=== PATIENT | male | born 1980 ===

== ENCOUNTER 2020-12-21 18:01 | Observation (INO) | payer MEDICAID, SELFPAY ==
[2020-12-21] MEDS ORDERED: Morphine 2 MG/ML SYRINGE IVPUSH ONE (18:25)
[2020-12-21] MEDS ORDERED: Sodium Chloride 0.9% 10 ML Syringe FLUSH PRN (18:25)
[2020-12-21] MEDS: Sodium Chloride 0.9% 10 ML Syringe FLUSH PRN ×3 (18:34→23:14)
--- NOTE | 2020-12-21 18:34 | EDM.PDOC ---
ED HPI GENERAL MEDICAL PROBLEM - General Chief Complaint: General Stated Complaint: L FOOT PAIN Time Seen by Provider: 12/21/20 18:24 Source of Information: Reports: Patient, EMS - History of Present Illness INITIAL COMMENTS - FREE TEXT/NARRATIVE: Vince is a 40 y/o male who is brought to the ER by EMS with left foot pain. He reports that his sx started yesterday and he is in pain. Also has had a fever since yesterday. He was supposed to follow up at the [facility] here in [place], but he reports that he has been out of town working. Also has pain his left knee and reports that he cannot take NSAIDS due to Chronic Renal Failure and he is close to needing to go on dialysis. He reports his last flare with about a month ago when he was in [place], [place] and he was placed in steroids. 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: Acetaminophen Left Foot Pain Score (Numeric/FACES): 10 - Related Data Allergies Allergy/AdvReac Type Severity Reaction Status Date / Time No Known Allergies Allergy Verified 12/21/20 18:35 Home Meds: Home Meds Labetalol HCl [Labetalol] 200 mg PO TID 10/24/14 [History] amLODIPine [Norvasc] 10 mg PO DAILY 10/24/14 [History] hydrALAZINE [Apresoline] 50 mg PO TID 12/21/20 [History] Past Medical History Other Genitourinary History: "kidney problems" ED ROS GENERAL - Review of Systems Review Of Systems: See Below Constitutional: Reports: Fever HEENT: Reports: No Symptoms Respiratory: Reports: No Symptoms Cardiovascular: Reports: No Symptoms Endocrine: Reports: No Symptoms GI/Abdominal: Reports: No Symptoms : Reports: No Symptoms Musculoskeletal: Reports: Foot Pain (left), Joint Pain (left knee) Skin: Reports: No Symptoms Neurological: Reports: No Symptoms Psychiatric: Reports: No Symptoms Hematologic/Lymphatic: Reports: No Symptoms Immunologic: Reports: No Symptoms ED EXAM, GENERAL - Physical Exam Exam: See Below General Appearance: Alert, WD/WN, No Apparent Distress Ears: Hearing Grossly Normal Nose: Normal Inspection Throat/Mouth: Normal Lips, Normal Oropharynx, Normal Voice Head: Atraumatic, Normocephalic Neck: Supple Respiratory/Chest: No Respiratory Distress, Lungs Clear, Chest Non-Tender Cardiovascular: Normal Peripheral Pulses, Regular Rate, Rhythm GI/Abdominal: Normal Bowel Sounds, Soft, Non-Tender (Male) Exam: Deferred Rectal (Males) Exam: Deferred Extremities: Normal Inspection, Other (Left foot is tender to palpation on the anterior aspect of the foot and left great toe, ROM not tested due to pain, no deformity noted.) Neurological: Alert, Oriented, CN II-XII Intact Psychiatric: Normal Affect, Normal Mood Skin Exam: Warm, Dry, Intact, Normal Color Course - Vital Signs Text/Narrative:: 1823 The patient was seen by the [facility]IC[facility]. Labs ordered. He was given Morphine 2mg IV P for pain. Will await labs prior to further interventions. Note BP elevated, but suspect pain related. 1914 Pain persists, Fentanyl 100mcg IVP given. Note WBC=13.1, Neuts=84.1%; Lactic Acid=1.0, CRP=24.3, Uric Acid=14.4; CMP BUN=36, [employer] Counselor=4.95, GFR=13. BP remains high, will assess and see if improves with pain control. 2009 Pain persisting and again getting worse. Rates pain 11/22. Dilaudid 2mg IVP given. 2129 BP still elevated and pt can hardly move due to pain. Labetalol 20mg IVP given. [place] and noted last narcotic Rx in [place] 05/2020. Current MME/day=0.00; OD Xqdi=943. 2229 Pain persists and actually feeling worse. Repeat Dilaudid 1mg IVP. BP rising again with SBPs >=200mmHg and DBPs 115-120smmHg, will given Hydralyzine 20mg IVP. Discussed attempting to get patient comfortable and sending home with steroids and pain meds and have him follow up with Nephrology vs admitting himfor acute pain management and attempting to get him transferred to [facility] for further care. 2244 Attempted to call and transfer pt, but no beds available. Will plan to admit here to Observation and treat pain, monitor BPs, and let steroids kick in for gout attack. Hopefully can get patient to establish care with PCP here in [facility] and then get into Nephrology as an outpatient. Last Recorded V/S: Last Vital Signs Temp 37.9 C 12/21/20 19:19 Pulse 106 H 12/21/20 19:19 Resp 16 09/08/21 19:19 BP 211/129 H 12/21/20 19:19 Pulse Ox 98 12/21/20 19:19 - Orders/Labs/Meds Orders: Active Orders 24 hr Category Date Time Status Patient Status [ADT] Routine ADT 12/21/20 22:52 Active CULTURE BLOOD [BC] Stat Lab 12/21/20 18:13 Received CULTURE BLOOD [BC] Stat Lab 12/21/20 18:18 Received Sodium Chloride 0.9% [Saline Flush] Med 12/21/20 18:25 Active 10 ml FLUSH ASDIRECTED PRN Blood Culture x2 Reflex Set [OM.PC] Stat Oth 12/21/20 18:25 Ordered Blood Culture x2 Reflex Set [OM.PC] Stat Oth 12/21/20 18:25 Ordered Saline Lock Insert [OM.PC] Routine Oth 12/21/20 18:26 Ordered Saline Lock Insert [OM.PC] Stat Oth 12/21/20 18:25 Ordered Medication Orders Acetaminophen (Acetaminophen 325 Mg Tab) 650 mg PO Q4H PRN PRN Reason: Pain (Mild 1-3)/fever Hydromorphone HCl (Hydromorphone 1 Mg/Ml Syringe) 1 mg IVPUSH Q2H PRN PRN Reason: Pain (severe 7-10) Methylprednisolone Sodium Succinate (Methylprednisolone Sodium Succinate 125 Mg/2 Ml Sdv) 125 mg IVPUSH Q6H ANANYA Non-Formulary Medication (Amlodipine [Norvasc]) 10 mg PO DAILY ANANYA Non-Formulary Medication (Hydralazine [Apresoline]) 50 mg PO TID ANANYA Non-Formulary Medication (Labetalol Hcl [Labetalol]) 200 mg PO TID ANANYA Oxycodone HCl (Oxycodone 5 Mg Tab) 5 mg PO Q4H PRN PRN Reason: Pain (moderate 4-6) Sodium Chloride (Sodium Chloride 0.9% 10 Ml Syringe) 10 ml FLUSH ASDIRECTED PRN PRN Reason: Keep Vein Open Labs: Laboratory Tests 12/21/20 12/21/20 12/21/20 Range/Units 18:13 18:13 18:13 WBC 13.1 H (4.0-10.2) K/uL RBC 4.47 (4.33-5.41) M/uL Hgb 11.9 L (13.1-16.8) g/dL Hct 34.7 L (39.0-49.0) % MCV 77.6 L (84.0-98.0) fL MCH 26.6 L (28.2-33.3) pg MCHC 34.3 (31.7-36.0) g/dL RDW 16.6 H (11.2-14.1) % Plt Count 419 H (150-350) K/uL Neut % (Auto) 84.1 H (45.0-80.0) % Lymph % (Auto) 6.6 L (10.0-50.0) % [place] % (Auto) 8.0 (2.0-14.0) % Eos % (Auto) 1.1 (0.0-5.0) % Baso % (Auto) 0.2 (0.0-2.0) % Neut # (Auto) 11.04 H (1.40-7.00) K/uL Lymph # (Auto) 0.86 (0.50-3.50) K/uL [place] # (Auto) 1.05 H (0.00-1.00) K/uL Eos # (Auto) 0.14 (0.00-0.50) K/uL Baso # (Auto) 0.03 (0.00-0.20) K/uL Sodium 140 (136-145) mmol/L Potassium 3.7 (3.5-5.1) mmol/L Chloride 105 (98-107) mmol/L Carbon Dioxide 21.6 (21.0-32.0) mmol/L Anion Gap 13.4 (7-15) meq/L BUN 36 H (7-18) mg/dL Creatinine 4.95 H* (0.51-1.17) mg/dL Est Cr Clr Drug Dosing 17.26 mL/min Estimated GFR (MDRD) 13 mL/min Glucose 96 (70-99) mg/dL Lactic Acid 1.0 (0.4-2.0) mmol/L Uric Acid 14.4 H (2.6-7.2) mg/dL Calcium 9.2 (8.5-10.1) mg/dL Total Bilirubin 0.4 (0.2-1.0) mg/dL AST 10 L (15-37) U/L ALT 20 (12-78) U/L Alkaline Phosphatase 94 (46-116) IU/L C-Reactive Protein 24.3 H (<=0.9) mg/dL Total Protein 7.5 (6.4-8.2) g/dL Albumin 2.9 L (3.4-5.0) g/dL Meds: Medications Generic Name Dose Route Start Last Admin Trade Name Farhat PRN Reason Stop Dose Admin Acetaminophen 650 mg 12/21/20 23:22 Acetaminophen 325 Mg Tab PO Q4H PRN Pain (Mild 1-3)/fever Hydromorphone HCl 1 mg 12/21/20 23:22 Hydromorphone 1 Mg/Ml Syringe IVPUSH Q2H PRN Pain (severe 7-10) Methylprednisolone Sodium Succinate 125 mg 12/21/20 23:45 Methylprednisolone Sodium Succinate 125 Mg/2 Ml Sdv IVPUSH Q6H ANANYA Non-Formulary Medication 10 mg 12/22/20 08:00 Amlodipine [Norvasc] PO DAILY ANANYA Non-Formulary Medication 50 mg 12/22/20 08:00 Hydralazine [Apresoline] PO TID ANANYA Non-Formulary Medication 200 mg 12/22/20 08:00 Labetalol Hcl [Labetalol] PO TID ANANYA Oxycodone HCl 5 mg 12/21/20 23:22 Oxycodone 5 Mg Tab PO Q4H PRN Pain (moderate 4-6) Sodium Chloride 10 ml 12/21/20 18:25 Sodium Chloride 0.9% 10 Ml Syringe FLUSH ASDIRECTED PRN Keep Vein Open Discontinued Medications Generic Name Dose Route Start Last Admin Trade Name Farhat PRN Reason Stop Dose Admin Fentanyl 100 mcg 12/21/20 19:18 12/21/20 19:21 Fentanyl 100 Mcg/2 Ml Sdv IVPUSH 12/21/20 19:19 100 mcg ONETIME ONE Administration Hydralazine HCl 10 mg 12/21/20 22:39 Hydralazine 20 Mg/Ml Sdv IVPUSH 12/21/20 22:40 ONETIME ONE Hydralazine HCl 20 mg 12/21/20 22:41 12/21/20 23:12 Hydralazine 20 Mg/Ml Sdv IVPUSH 12/21/20 22:42 20 mg ONETIME ONE Administration Hydromorphone HCl 1 mg 12/21/20 20:09 12/21/20 21:33 Hydromorphone 1 Mg/Ml Syringe IVPUSH 12/21/20 20:10 1 mg ONETIME ONE Administration Hydromorphone HCl 1 mg 12/21/20 22:39 12/21/20 23:12 Hydromorphone 1 Mg/Ml Syringe IVPUSH 12/21/20 22:40 1 mg ONETIME ONE Administration Labetalol HCl 20 mg 12/21/20 21:39 12/21/20 21:41 Labetalol 20 Mg/4 Ml Syringe IVPUSH 12/21/20 21:40 20 mg ONETIME ONE Administration Protocol Methylprednisolone Sodium Succinate 125 mg 12/21/20 19:55 12/21/20 21:32 Methylprednisolone Sodium Succinate 125 Mg/2 Ml Sdv IVPUSH 12/21/20 19:56 125 mg ONETIME ONE Administration Methylprednisolone Sodium Succinate 125 mg 12/21/20 20:09 12/21/20 21:36 Methylprednisolone Sodium Succinate 125 Mg/2 Ml Sdv IVPUSH 12/21/20 20:10 Not Given ONETIME ONE Morphine Sulfate 2 mg 12/21/20 18:25 12/21/20 18:29 Morphine 2 Mg/Ml Syringe IVPUSH 12/21/20 18:26 2 mg ONETIME ONE Administration Sodium Chloride 10 ml 12/21/20 18:26 12/21/20 23:14 Sodium Chloride 0.9% 10 Ml Syringe FLUSH 10 ml ASDIRECTED PRN Administration Keep Vein Open Departure - Departure Time of Disposition: 22:52 Disposition: DC/Tfer W/I Hosp To Swing 61 Condition: Good Clinical Impression: Acute pain, Hypertension with impaired renal function Gout Qualifiers: Gout site: foot Gout etiology: unspecified cause Chronicity: acute Laterality: left Qualified Code(s): M10.9 - Gout, unspecified CRF (chronic renal failure) Qualifiers: Chronic kidney disease stage: stage 4 (severe) Qualified Code(s): N18.4 - Chronic kidney disease, stage 4 (severe) - Discharge Information Sepsis Event Note (ED) - Evaluation Sepsis Screening Result: Possible Sepsis Risk - Focused Exam Vital Signs: Vital Signs Temp Pulse Resp BP BP Pulse Ox 12/21/20 19:19 37.9 C 106 H 16 211/129 H 98 12/21/20 18:42 106 H 18 206/122 H 98 12/21/20 18:02 38.1 C 104 H 20 216/130 H 100 - Problem List & Annotations (1) Acute pain SNOMED Code(s): 548344454 Code(s): R52 - PAIN, UNSPECIFIED Status: Acute Current Visit: Yes Annotation/Comment:: Will give Diluadid tonight to control acute pain related to gout exacerbation. Will trasnsition to oral meds, but hoping pain will improve with rest and steroids. (2) Gout SNOMED Code(s): 25505951 Code(s): M10.9 - GOUT, UNSPECIFIED Status: Acute Current Visit: Yes Annotation/Comment:: Uric acid=14.4, CRP=24.3 along with clinical presentation, appears to be exacerbation of gout. Most recent attack 1 rogelio ago. Was on course of steroids. Renal failure complicates what he can receive for meds. He has not established care with a PCP since relocating to the [facility]. Qualifiers: Gout site: foot Gout etiology: unspecified cause Chronicity: acute Laterality: left Qualified Code(s): M10.9 - Gout, unspecified (3) Hypertension with impaired renal function SNOMED Code(s): 05174165, 635682015 Code(s): I12.9 - HYPERTENSIVE CHRONIC KIDNEY DISEASE W STG 1-4/UNSP CHR KDNY Status: Acute Current Visit: Yes Annotation/Comment:: -On Hydralyzine, Amlodipine, and & Labetolol oral meds for CHTN of 20 years. GFR=13, BUN=36, [employer] Counselor=4.95, no past records available for review of labs. Patient been advised he needs dialysis, will attempt to get Nephrology consult set up tomorrow. Will give extra antihypertensives for increased BP tonight, but suspect it is pain related from the gout attack. (4) CRF (chronic renal failure) SNOMED Code(s): 35243977 Code(s): N18.9 - CHRONIC KIDNEY DISEASE, UNSPECIFIED Status: Acute Current Visit: Yes Annotation/Comment:: GFR=13 as noted above. Will need urgent Nephrology Referral. Potassium normal tonight. Will check US tomorrw in AM for protein. Qualifiers: Chronic kidney disease stage: stage 4 (severe) Qualified Code(s): N18.4 - Chronic kidney disease, stage 4 (severe) - Problem List Review Problem List Initiated/Reviewed/Updated: Yes - My Orders Last 24 Hours: My Active Orders 12/21/20 18:13 CULTURE BLOOD [BC] Stat 12/21/20 18:18 CULTURE BLOOD [BC] Stat 12/21/20 18:25 Sodium Chloride 0.9% [Saline Flush] 10 ml FLUSH ASDIRECTED PRN Blood Culture x2 Reflex Set [OM.PC] Stat Blood Culture x2 Reflex Set [OM.PC] Stat Saline Lock Insert [OM.PC] Stat 12/21/20 18:26 Saline Lock Insert [OM.PC] Routine 12/21/20 22:52 Patient Status [ADT] Routine - Assessment/Plan Admission H&P: Please use this note as an admission H&P Last 24 Hours: My Active Orders 12/21/20 18:13 CULTURE BLOOD [BC] Stat 12/21/20 18:18 CULTURE BLOOD [BC] Stat 12/21/20 18:25 Sodium Chloride 0.9% [Saline Flush] 10 ml FLUSH ASDIRECTED PRN Blood Culture x2 Reflex Set [OM.PC] Stat Blood Culture x2 Reflex Set [OM.PC] Stat Saline Lock Insert [OM.PC] Stat 12/21/20 18:26 Saline Lock Insert [OM.PC] Routine 12/21/20 22:52 Patient Status [ADT] Routine Plan: See Above
[2020-12-21 18:58] LABS: ANION GAP 13.4 meq/L (7-15)
[2020-12-21] MEDS ORDERED: fentaNYL 100 MCG/2 ML SDV IVPUSH ONE (19:18)
[2020-12-21] MEDS ORDERED: methylPREDNISolone Sodium Succinate 125 MG/2 ML SDV IVPUSH ONE ×2 (19:55→20:09)
[2020-12-21] MEDS ORDERED: HYDROmorphone 1 MG/ML Syringe IVPUSH ONE ×2 (20:09→22:39)
[2020-12-21] MEDS ORDERED: Labetalol 20 MG/4 ML Syringe IVPUSH ONE ×2 (21:07→21:39)
[2020-12-21] MEDS ORDERED: hydrALAZINE 20 MG/ML SDV IVPUSH ONE ×2 (22:39→22:41)
[2020-12-21] MEDS ORDERED: HYDROmorphone 1 MG/ML Syringe IVPUSH PRN (23:22)
[2020-12-22] MEDS: oxyCODONE 5 MG Tab PO PRN ×3 (00:30→09:58)
[2020-12-22] MEDS: Acetaminophen 325 MG Tab PO PRN ×2 (02:19→07:22)
[2020-12-22] MEDS: methylPREDNISolone Sodium Succinate 125 MG/2 ML SDV IVPUSH SCH ×3 (02:20→13:27)
[2020-12-22] MEDS: hydrALAZINE 50 MG Tab PO SCH ×2 (07:21→11:17)
[2020-12-22] MEDS: Labetalol 100 MG Tab PO SCH ×2 (07:21→11:19)
[2020-12-22] MEDS ORDERED: amLODIPine 5 MG Tab PO SCH (08:00)
[2020-12-22 08:44] LABS: ANION GAP 18.5 meq/L (7-15)
[2020-12-22 11:21] VITALS: BP 171/116; PULSE 85
--- NOTE | 2020-12-22 11:47 | PCM.PN ---
- General Info Date of Service: 12/22/20 Admission Dx/Problem (Free Text): 1)Acute Pain 2)Gout Attack 3)Chronic Kidney Disease 4)Chronic Hypertension Subjective Update: Patient reporting pain has improved. He is now is now applying ice the left foot and that also helps. Now taking Oxycodone for pain and that seems to be effective. Required several doses of Dilaudid through the night for the pain. Patient is now willing to see Nephrology and start dialysis, he has previously been resistant. - Review of Systems General: Reports: No Symptoms HEENT: Reports: No Symptoms Pulmonary: Reports: No Symptoms Cardiovascular: Reports: No Symptoms Gastrointestinal: Reports: No Symptoms Genitourinary: Reports: No Symptoms Musculoskeletal: Reports: Foot Pain (left foot) Skin: Reports: No Symptoms Neurological: Reports: No Symptoms Psychiatric: Reports: No Symptoms - Patient Data Vitals - Most Recent: Last Vital Signs Temp 37.0 C 12/22/20 07:33 Pulse 85 12/22/20 11:21 Resp 16 12/22/20 11:21 BP 171/116 H 12/22/20 11:21 Pulse Ox 97 12/22/20 11:21 Weight - Most Recent: 95.2 kg I&O - Last 24 Hours: Intake & Output 12/21/20 12/22/20 12/22/20 22:59 06:59 14:59 Intake Total 1240 Balance 1240 Lab Results Last 24 Hours: Laboratory Results - last 24 hr 12/21/20 12/21/20 12/21/20 Range/Units 18:13 18:13 18:13 WBC 13.1 H (4.0-10.2) K/uL RBC 4.47 (4.33-5.41) M/uL Hgb 11.9 L (13.1-16.8) g/dL Hct 34.7 L (39.0-49.0) % MCV 77.6 L (84.0-98.0) fL MCH 26.6 L (28.2-33.3) pg MCHC 34.3 (31.7-36.0) g/dL RDW 16.6 H (11.2-14.1) % Plt Count 419 H (150-350) K/uL Neut % (Auto) 84.1 H (45.0-80.0) % Lymph % (Auto) 6.6 L (10.0-50.0) % [place] % (Auto) 8.0 (2.0-14.0) % Eos % (Auto) 1.1 (0.0-5.0) % Baso % (Auto) 0.2 (0.0-2.0) % Neut # (Auto) 11.04 H (1.40-7.00) K/uL Lymph # (Auto) 0.86 (0.50-3.50) K/uL [place] # (Auto) 1.05 H (0.00-1.00) K/uL Eos # (Auto) 0.14 (0.00-0.50) K/uL Baso # (Auto) 0.03 (0.00-0.20) K/uL Sodium 140 (136-145) mmol/L Potassium 3.7 (3.5-5.1) mmol/L Chloride 105 (98-107) mmol/L Carbon Dioxide 21.6 (21.0-32.0) mmol/L Anion Gap 13.4 (7-15) meq/L BUN 36 H (7-18) mg/dL Creatinine 4.95 H* (0.51-1.17) mg/dL Est Cr Clr Drug Dosing 17.26 mL/min Estimated GFR (MDRD) 13 mL/min Glucose 96 (70-99) mg/dL Lactic Acid 1.0 (0.4-2.0) mmol/L Uric Acid 14.4 H (2.6-7.2) mg/dL Calcium 9.2 (8.5-10.1) mg/dL Total Bilirubin 0.4 (0.2-1.0) mg/dL AST 10 L (15-37) U/L ALT 20 (12-78) U/L Alkaline Phosphatase 94 (46-116) IU/L C-Reactive Protein 24.3 H (<=0.9) mg/dL Total Protein 7.5 (6.4-8.2) g/dL Albumin 2.9 L (3.4-5.0) g/dL SARS-CoV-2 Ag (Rapid) (NEGATIVE) 12/21/20 12/22/20 12/22/20 Range/Units 23:33 07:11 07:11 WBC 13.9 H (4.0-10.2) K/uL RBC 4.73 (4.33-5.41) M/uL Hgb 12.6 L (13.1-16.8) g/dL Hct 36.3 L (39.0-49.0) % MCV 76.7 L (84.0-98.0) fL MCH 26.6 L (28.2-33.3) pg MCHC 34.7 (31.7-36.0) g/dL RDW 16.7 H (11.2-14.1) % Plt Count 361 H (150-350) K/uL Neut % (Auto) 96.8 H (45.0-80.0) % Lymph % (Auto) 2.1 L (10.0-50.0) % [place] % (Auto) 0.9 L (2.0-14.0) % Eos % (Auto) 0.1 (0.0-5.0) % Baso % (Auto) 0.1 (0.0-2.0) % Neut # (Auto) 13.49 H (1.40-7.00) K/uL Lymph # (Auto) 0.29 L (0.50-3.50) K/uL [place] # (Auto) 0.12 (0.00-1.00) K/uL Eos # (Auto) 0.01 (0.00-0.50) K/uL Baso # (Auto) 0.02 (0.00-0.20) K/uL Sodium 135 L (136-145) mmol/L Potassium 4.4 (3.5-5.1) mmol/L Chloride 100 (98-107) mmol/L Carbon Dioxide 20.9 L (21.0-32.0) mmol/L Anion Gap 18.5 H (7-15) meq/L BUN 40 H (7-18) mg/dL Creatinine 5.46 H* (0.51-1.17) mg/dL Est Cr Clr Drug Dosing 15.64 mL/min Estimated GFR (MDRD) 12 mL/min Glucose 270 H (70-99) mg/dL Lactic Acid (0.4-2.0) mmol/L Uric Acid (2.6-7.2) mg/dL Calcium 9.6 (8.5-10.1) mg/dL Total Bilirubin (0.2-1.0) mg/dL AST (15-37) U/L ALT (12-78) U/L Alkaline Phosphatase (46-116) IU/L C-Reactive Protein 14.6 H (<=0.9) mg/dL Total Protein (6.4-8.2) g/dL Albumin (3.4-5.0) g/dL SARS-CoV-2 Ag (Rapid) Negative (NEGATIVE) Med Orders - Current: Current Medications Acetaminophen (Acetaminophen 325 Mg Tab) 650 mg PO Q4H PRN PRN Reason: Pain (Mild 1-3)/fever Last Admin: 12/22/20 07:22 Dose: 650 mg Documented by: Amlodipine Besylate (Amlodipine 5 Mg Tab) 10 mg PO DAILY [facility] Last Admin: 12/22/20 07:20 Dose: 10 mg Documented by: Hydralazine HCl (Hydralazine 50 Mg Tab) 50 mg PO TID [facility] Last Admin: 12/22/20 11:17 Dose: 50 mg Documented by: Hydromorphone HCl (Hydromorphone 1 Mg/Ml Syringe) 1 mg IVPUSH Q2H PRN PRN Reason: Pain (severe 7-10) Labetalol HCl (Labetalol 100 Mg Tab) 200 mg PO TID [facility] Last Admin: 12/22/20 11:19 Dose: 200 mg Documented by: Methylprednisolone Sodium Succinate (Methylprednisolone Sodium Succinate 125 Mg/2 Ml Sdv) 125 mg IVPUSH Q6H [facility] Last Admin: 12/22/20 07:22 Dose: 125 mg Documented by: Oxycodone HCl (Oxycodone 5 Mg Tab) 5 mg PO Q4H PRN PRN Reason: Pain (moderate 4-6) Last Admin: 12/22/20 09:58 Dose: 5 mg Documented by: Sodium Chloride (Sodium Chloride 0.9% 10 Ml Syringe) 10 ml FLUSH ASDIRECTED PRN PRN Reason: Keep Vein Open Discontinued Medications Fentanyl (Fentanyl 100 Mcg/2 Ml Sdv) 100 mcg IVPUSH ONETIME ONE Stop: 12/21/20 19:19 Last Admin: 12/21/20 19:21 Dose: 100 mcg Documented by: Hydralazine HCl (Hydralazine 20 Mg/Ml Sdv) 10 mg IVPUSH ONETIME ONE Stop: 12/21/20 22:40 Last Admin: 12/22/20 02:43 Dose: Not Given Documented by: Hydralazine HCl (Hydralazine 20 Mg/Ml Sdv) 20 mg IVPUSH ONETIME ONE Stop: 12/21/20 22:42 Last Admin: 12/21/20 23:12 Dose: 20 mg Documented by: Hydromorphone HCl (Hydromorphone 1 Mg/Ml Syringe) 1 mg IVPUSH ONETIME ONE Stop: 12/21/20 20:10 Last Admin: 12/21/20 21:33 Dose: 1 mg Documented by: Hydromorphone HCl (Hydromorphone 1 Mg/Ml Syringe) 1 mg IVPUSH ONETIME ONE Stop: 12/21/20 22:40 Last Admin: 12/21/20 23:12 Dose: 1 mg Documented by: Labetalol HCl (Labetalol 20 Mg/4 Ml Syringe) 20 mg IVPUSH ONETIME ONE; Protocol Stop: 12/21/20 21:40 Last Admin: 12/21/20 21:41 Dose: 20 mg Documented by: Methylprednisolone Sodium Succinate (Methylprednisolone Sodium Succinate 125 Mg/2 Ml Sdv) 125 mg IVPUSH ONETIME ONE Stop: 12/21/20 19:56 Last Admin: 12/21/20 21:32 Dose: 125 mg Documented by: Methylprednisolone Sodium Succinate (Methylprednisolone Sodium Succinate 125 Mg/2 Ml Sdv) 125 mg IVPUSH ONETIME ONE Stop: 12/21/20 20:10 Last Admin: 12/21/20 21:36 Dose: Not Given Documented by: Morphine Sulfate (Morphine 2 Mg/Ml Syringe) 2 mg IVPUSH ONETIME ONE Stop: 12/21/20 18:26 Last Admin: 12/21/20 18:29 Dose: 2 mg Documented by: Sodium Chloride (Sodium Chloride 0.9% 10 Ml Syringe) 10 ml FLUSH ASDIRECTED PRN PRN Reason: Keep Vein Open Last Admin: 12/21/20 23:14 Dose: 10 ml Documented by: - Exam General: Alert, Oriented, Cooperative, No Acute Distress HEENT: Mucous Membr. Moist/[place] Neck: Supple Lungs: Clear to Auscultation, Normal Respiratory Effort Cardiovascular: Regular Rate, Regular Rhythm GI/Abdominal Exam: Normal Bowel Sounds, Soft, Non-Tender (Male) Exam: Deferred Back Exam: Normal Inspection Extremities: Normal Inspection, Normal Range of Motion, Normal Capillary Refill, Other (Decreased tenderness with palpation to left foot with palpation) Skin: Warm, Dry, Intact Neurological: No New Focal Deficit Psy/Mental Status: Alert, Normal Affect, Normal Mood - Patient Data Lab Results Last 24 hrs: Laboratory Results - last 24 hr 12/21/20 12/21/20 12/21/20 Range/Units 18:13 18:13 18:13 WBC 13.1 H (4.0-10.2) K/uL RBC 4.47 (4.33-5.41) M/uL Hgb 11.9 L (13.1-16.8) g/dL Hct 34.7 L (39.0-49.0) % MCV 77.6 L (84.0-98.0) fL MCH 26.6 L (28.2-33.3) pg MCHC 34.3 (31.7-36.0) g/dL RDW 16.6 H (11.2-14.1) % Plt Count 419 H (150-350) K/uL Neut % (Auto) 84.1 H (45.0-80.0) % Lymph % (Auto) 6.6 L (10.0-50.0) % Menard % (Auto) 8.0 (2.0-14.0) % Eos % (Auto) 1.1 (0.0-5.0) % Baso % (Auto) 0.2 (0.0-2.0) % Neut # (Auto) 11.04 H (1.40-7.00) K/uL Lymph # (Auto) 0.86 (0.50-3.50) K/uL Menard # (Auto) 1.05 H (0.00-1.00) K/uL Eos # (Auto) 0.14 (0.00-0.50) K/uL Baso # (Auto) 0.03 (0.00-0.20) K/uL Sodium 140 (136-145) mmol/L Potassium 3.7 (3.5-5.1) mmol/L Chloride 105 (98-107) mmol/L Carbon Dioxide 21.6 (21.0-32.0) mmol/L Anion Gap 13.4 (7-15) meq/L BUN 36 H (7-18) mg/dL Creatinine 4.95 H* (0.51-1.17) mg/dL Est Cr Clr Drug Dosing 17.26 mL/min Estimated GFR (MDRD) 13 mL/min Glucose 96 (70-99) mg/dL Lactic Acid 1.0 (0.4-2.0) mmol/L Uric Acid 14.4 H (2.6-7.2) mg/dL Calcium 9.2 (8.5-10.1) mg/dL Total Bilirubin 0.4 (0.2-1.0) mg/dL AST 10 L (15-37) U/L ALT 20 (12-78) U/L Alkaline Phosphatase 94 (46-116) IU/L C-Reactive Protein 24.3 H (<=0.9) mg/dL Total Protein 7.5 (6.4-8.2) g/dL Albumin 2.9 L (3.4-5.0) g/dL SARS-CoV-2 Ag (Rapid) (NEGATIVE) 12/21/20 12/22/20 12/22/20 Range/Units 23:33 07:11 07:11 WBC 13.9 H (4.0-10.2) K/uL RBC 4.73 (4.33-5.41) M/uL Hgb 12.6 L (13.1-16.8) g/dL Hct 36.3 L (39.0-49.0) % MCV 76.7 L (84.0-98.0) fL MCH 26.6 L (28.2-33.3) pg MCHC 34.7 (31.7-36.0) g/dL RDW 16.7 H (11.2-14.1) % Plt Count 361 H (150-350) K/uL Neut % (Auto) 96.8 H (45.0-80.0) % Lymph % (Auto) 2.1 L (10.0-50.0) % Menard % (Auto) 0.9 L (2.0-14.0) % Eos % (Auto) 0.1 (0.0-5.0) % Baso % (Auto) 0.1 (0.0-2.0) % Neut # (Auto) 13.49 H (1.40-7.00) K/uL Lymph # (Auto) 0.29 L (0.50-3.50) K/uL Menard # (Auto) 0.12 (0.00-1.00) K/uL Eos # (Auto) 0.01 (0.00-0.50) K/uL Baso # (Auto) 0.02 (0.00-0.20) K/uL Sodium 135 L (136-145) mmol/L Potassium 4.4 (3.5-5.1) mmol/L Chloride 100 (98-107) mmol/L Carbon Dioxide 20.9 L (21.0-32.0) mmol/L Anion Gap 18.5 H (7-15) meq/L BUN 40 H (7-18) mg/dL Creatinine 5.46 H* (0.51-1.17) mg/dL Est Cr Clr Drug Dosing 15.64 mL/min Estimated GFR (MDRD) 12 mL/min Glucose 270 H (70-99) mg/dL Lactic Acid (0.4-2.0) mmol/L Uric Acid (2.6-7.2) mg/dL Calcium 9.6 (8.5-10.1) mg/dL Total Bilirubin (0.2-1.0) mg/dL AST (15-37) U/L ALT (12-78) U/L Alkaline Phosphatase (46-116) IU/L C-Reactive Protein 14.6 H (<=0.9) mg/dL Total Protein (6.4-8.2) g/dL Albumin (3.4-5.0) g/dL SARS-CoV-2 Ag (Rapid) Negative (NEGATIVE) Result Diagrams: 12/22/20 07:11 12/22/20 07:11 Sepsis Event Note - Evaluation Sepsis Screening Result: No Definite Risk - Focused Exam Vital Signs: Vital Signs Temp Pulse Pulse Resp BP BP Pulse Ox 12/22/20 11:21 85 16 171/116 H 97 12/22/20 11:19 86 171/116 H 12/22/20 11:17 171/116 H 12/22/20 09:29 164/107 H 12/22/20 07:33 37.0 C 103 H 19 187/132 H 98 12/22/20 07:21 103 H 187/132 H 12/22/20 07:20 187/132 H 12/22/20 05:52 36.8 C 12/22/20 05:43 103 H 202/141 H 98 12/22/20 00:29 38.1 C 113 H 16 191/129 H 96 - Problem List & Annotations (1) Acute pain SNOMED Code(s): 462387885 Code(s): R52 - PAIN, UNSPECIFIED Status: Acute Current Visit: Yes Annotation/Comment:: Now able to get some pain relief. Using Oxycdone for pain. (2) Gout SNOMED Code(s): 40447759 Code(s): M10.9 - GOUT, UNSPECIFIED Status: Acute Current Visit: Yes Qualifiers: Gout site: foot Gout etiology: unspecified cause Chronicity: acute Laterality: left Qualified Code(s): M10.9 - Gout, unspecified Annotation/Comment:: Uric acid=14.4 on admit, CRP=14.6 this AM, improved. Receiving IV SoluMedrol and seems to be subsiding the gout pain. Renal failure complicates what he can receive for meds. He has not established care with a PCP since relocating to the [facility]. (3) Hypertension with impaired renal function SNOMED Code(s): 28804151, 876267742 Code(s): I12.9 - HYPERTENSIVE CHRONIC KIDNEY DISEASE W STG 1-4/UNSP CHR KDNY Status: Acute Current Visit: Yes Annotation/Comment:: -On Hydralyzine, Amlodipine, and & Labetolol oral meds for CHTN of 20 years. GFR=12, decreasing again this AM, BUN=40, [employer]=5.46, both increasing overnight. No past records available for review of labs [place]. Patient been advised he needs dialysis. BPs better this AM after pain control, but still 160s/100s. Contacted [facility]-they are on divert; [facility] since patient reports being seem there in the past, he is on a wait list at this time; [facility] contacted and patient also on wiatlist for a bed. [facility] also contacted and patient preseted. (4) CRF (chronic renal failure) SNOMED Code(s): 36192019 Code(s): N18.9 - CHRONIC KIDNEY DISEASE, UNSPECIFIED Status: Acute Current Visit: Yes Qualifiers: Chronic kidney disease stage: stage 4 (severe) Qualified Code(s): N18.4 - Chronic kidney disease, stage 4 (severe) Annotation/Comment:: GFR=12; Potassium-4.4 and rising overnight. Will need urgent Nephrology Referral. - Problem List Review Problem List Initiated/Reviewed/Updated: Yes - My Orders Last 24 Hours: My Active Orders 12/21/20 18:13 CULTURE BLOOD [BC] Stat 12/21/20 18:18 CULTURE BLOOD [BC] Stat 12/21/20 18:25 Sodium Chloride 0.9% [Saline Flush] 10 ml FLUSH ASDIRECTED PRN Blood Culture x2 Reflex Set [OM.PC] Stat Blood Culture x2 Reflex Set [OM.PC] Stat Saline Lock Insert [OM.PC] Stat 12/21/20 18:26 Saline Lock Insert [OM.PC] Routine 12/21/20 22:52 Patient Status [ADT] Routine 12/21/20 23:22 May Shower [RC] 08,20 Oxygen Therapy [RC] PRN Up ad Letty [RC] 08,20 VTE/DVT Education [RC] PER UNIT ROUTINE Vital Signs [RC] Q4HR Acetaminophen [TylenoL] 650 mg PO Q4H PRN HYDROmorphone [Dilaudid] 1 mg IVPUSH Q2H PRN oxyCODONE 5 mg PO Q4H PRN Resuscitation Status Routine 12/21/20 23:33 CORONAVIRUS COVID-19 LOCO [MOLEC] Stat 12/22/20 00:02 Blood Pressure [OM.PC] Routine 12/22/20 02:00 methylPREDNISolone Sod Succ [Solu-MEDROL] 125 mg IVPUSH Q6H 12/22/20 08:00 Labetalol [Normodyne] 200 mg PO TID amLODIPine [Norvasc] 10 mg PO DAILY hydrALAZINE [Apresoline] 50 mg PO TID - Plan Plan:: As above
--- NOTE | 2020-12-22 18:40 | PCM.DCSUM1 ---
Discharge Summary - Hospital Course HPI Initial Comments: Vince presented to the emergency room via EMS on the evening with left foot pain that has been persisting for the last say. He presented with what a typical gout attack was for him. His uric acid was elevated, but he was also to found to have uncontrolled hypertension. His labs also showed that his Chronic Renal Failure was progressing. He was admitted to Observation for acute pain management along with steroids. Treatment for his gout is complicated by the renal impairment. His pain did improve overnight with IV Dilaudid transitioning to Oxycodone along with the IV steroids. Nephrology was consulted and it was determined that he could be seen as an o utpatient for care and did not need Acute Dialysis. Outpatient appts were set up and patient was able to go home with oral meds for the gout. Diagnosis: Stroke: No - Discharge Data Discharge Date: 12/22/20 Discharge Disposition: Home, Self-Care 01 Condition: Good - Referral to Home Health Primary Care Physician: LETICIA Gamez - Discharge Diagnosis/Problem(s) (1) Acute pain SNOMED Code(s): 622566407 ICD Code: R52 - PAIN, UNSPECIFIED Status: Acute Problem Details: Using Oxycdone for pain. Will discharge with Rx for pain meds. (2) Gout SNOMED Code(s): 37233181 ICD Code: M10.9 - GOUT, UNSPECIFIED Status: Acute Problem Details: Uric acid=14.4 on admit, CRP=14.6 this AM, improved. Receiving IV SoluMedrol and seems to be subsiding the gout pain. Renal failure complicates what he can receive for meds. He has not established care with a PCP since relocating to the [facility]. Hospital follow up appts made with Rodo Madrid PA-C at [facility] per patient request. Qualifiers: Gout site: foot Gout etiology: unspecified cause Chronicity: acute Laterality: left Qualified Code(s): M10.9 - Gout, unspecified (3) Hypertension with impaired renal function SNOMED Code(s): 75233283, 654080611 ICD Code: I12.9 - HYPERTENSIVE CHRONIC KIDNEY DISEASE W STG 1-4/UNSP CHR KDNY Status: Acute Problem Details: -On Hydralyzine, Amlodipine, and & Labetolol oral meds for CHTN of 20 years. GFR=12, decreasing again this AM, BUN=40, E [employer] Manager=5.46, both increasing overnight. No past records available for review of labs due to sporadic care in [place], and [place] facilities. Patient been advised he needs dialysis. BPs better this AM after pain control, but still 160s/100s. Contacted [facility]-they are on divert; [facility] since patient reports being seem there in the past, he is on a wait list at this time; [facility] contacted and patient also on wiatlist for a bed. Spoke with Dr Perez at [facility] in [place] and will increase Hydralyzine to 100mg po qd. Will then have PCP and Neprology manage. [facility] also contacted and patient preseted. (4) CRF (chronic renal failure) SNOMED Code(s): 43469599 ICD Code: N18.9 - CHRONIC KIDNEY DISEASE, UNSPECIFIED Status: Acute P roblem Details: GFR=12; Potassium-4.4 and rising overnight. Attempting to set up Nephrology referral with [facility] prior to discharge. Will need serial labs on Saturday or Saturday per [employer] recommendations from [facility] Dr Perez. As of patient discharge we have no confirmed date and time for this to occur, multiple calls and records sent to [facility] hotel or motel receptionist. Qualifiers: Chronic kidney disease stage: stage 4 (severe) Qualified Code(s): N18.4 - Chronic kidney disease, stage 4 (severe) - Patient Summary/Data Consults: Consultations 12/22/20 14:31 Consult to Physician [CONS] Stat 12/22/20 14:33 Consult to Physician [CONS] Stat - Patient Instructions Diet: Renal Diet Activity: As Tolerated Driving: May Drive Today Driving, Other: Be cautious while dricing and using opioid pain meds. Showering/Bathing: May Shower Notify Provider of: Fever, Increased Pain, Nausea and/or Vomiting - Discharge Plan *PRESCRIPTION DRUG MONITORING PROGRAM REVIEWED*: Yes *COPY OF PRESCRIPTION DRUG MONITORING REPORT IN PATIENT CLARISSE: No Prescriptions/Med Rec: hydrALAZINE [Apresoline] 100 mg PO TID #90 tab methylPREDNISolone [Medrol] 4 mg PO ASDIRECTED #21 dospk oxyCODONE 5 mg PO Q4H 3 Days #15 ml Home Medications: Home Meds Labetalol HCl [Labetalol] 200 mg PO TID 10/24/14 [History] amLODIPine [Norvasc] 10 mg PO DAILY 10/24/14 [History] hydrALAZINE [Apresoline] 100 mg PO TID #90 tab 12/22/20 [Rx] methylPREDNISolone [Medrol] 4 mg PO ASDIRECTED #21 dospk 12/22/20 [Rx] oxyCODONE 5 mg PO Q4H 3 Days #15 ml 12/22/20 [Rx] Oxygen Therapy Mode: Room Air Patient Handouts: Food Basics for Chronic Kidney Disease, Chronic Kidney Disease, Adult, [id number], Gout Referrals: Rodo Madrid PA [Primary Care Provider] - - Discharge Summary/Plan Comment DC Time >30 min.: Yes Total # of Minutes for Discharge Time: 45 Discharge Summary/Plan Comment: > 50% of the time was spent consulting specialists, documenting, and coordinating follow up. - Patient Data Vitals - Most Recent: Last Vital Signs Temp 37.0 C 12/22/20 07:33 Pulse 85 12/22/20 11:21 Resp 16 12/22/20 11:21 BP 171/116 H 12/22/20 11:21 Pulse Ox 97 12/22/20 11:21 Weight - Most Recent: 95.2 kg I&O - Last 24 hours: Intake & Output 12/22/20 12/22/20 12/22/20 06:59 14:59 22:59 Intake Total 1240 Balance 1240 Lab Results - Last 24 hrs: Laboratory Results - last 24 hr 12/21/20 12/21/20 12/21/20 Range/Units 18:13 18:13 18:13 WBC 13.1 H (4.0-10.2) K/uL RBC 4.47 (4.33-5.41) M/uL Hgb 11.9 L (13.1-16.8) g/dL Hct 34.7 L (39.0-49.0) % MCV 77.6 L (84.0-98.0) fL MCH 26.6 L (28.2-33.3) pg MCHC 34.3 (31.7-36.0) g/dL RDW 16.6 H (11.2-14.1) % Plt Count 419 H (150-350) K/uL Neut % (Auto) 84.1 H (45.0-80.0) % Lymph % (Auto) 6.6 L (10.0-50.0) % [place] % (Auto) 8.0 (2.0-14.0) % Eos % (Auto) 1.1 (0.0-5.0) % Baso % (Auto) 0.2 (0.0-2.0) % Neut # (Auto) 11.04 H (1.40-7.00) K/uL Lymph # (Auto) 0.86 (0.50-3.50) K/uL [place] # (Auto) 1.05 H (0.00-1.00) K/uL Eos # (Auto) 0.14 (0.00-0.50) K/uL Baso # (Auto) 0.03 (0.00-0.20) K/uL Sodium 140 (136-145) mmol/L Potassium 3.7 (3.5-5.1) mmol/L Chloride 105 (98-107) mmol/L Carbon Dioxide 21.6 (21.0-32.0) mmol/L Anion Gap 13.4 (7-15) meq/L BUN 36 H (7-18) mg/dL Creatinine 4.95 H* (0.51-1.17) mg/dL Est Cr Clr Drug Dosing 17.26 mL/min Estimated GFR (MDRD) 13 mL/min Glucose 96 (70-99) mg/dL Lactic Acid 1.0 (0.4-2.0) mmol/L Uric Acid 14.4 H (2.6-7.2) mg/dL Calcium 9.2 (8.5-10.1) mg/dL Total Bilirubin 0.4 (0.2-1.0) mg/dL AST 10 L (15-37) U/L ALT 20 (12-78) U/L Alkaline Phosphatase 94 (46-116) IU/L C-Reactive Protein 24.3 H (<=0.9) mg/dL Total Protein 7.5 (6.4-8.2) g/dL Albumin 2.9 L (3.4-5.0) g/dL SARS-CoV-2 Ag (Rapid) (NEGATIVE) 12/21/20 12/22/20 12/22/20 Range/Units 23:33 07:11 07:11 WBC 13.9 H (4.0-10.2) K/uL RBC 4.73 (4.33-5.41) M/uL Hgb 12.6 L (13.1-16.8) g/dL Hct 36.3 L (39.0-49.0) % MCV 76.7 L (84.0-98.0) fL MCH 26.6 L (28.2-33.3) pg MCHC 34.7 (31.7-36.0) g/dL RDW 16.7 H (11.2-14.1) % Plt Count 361 H (150-350) K/uL Neut % (Auto) 96.8 H (45.0-80.0) % Lymph % (Auto) 2.1 L (10.0-50.0) % [place] % (Auto) 0.9 L (2.0-14.0) % Eos % (Auto) 0.1 (0.0-5.0) % Baso % (Auto) 0.1 (0.0-2.0) % Neut # (Auto) 13.49 H (1.40-7.00) K/uL Lymph # (Auto) 0.29 L (0.50-3.50) K/uL [place] # (Auto) 0.12 (0.00-1.00) K/uL Eos # (Auto) 0.01 (0.00-0.50) K/uL Baso # (Auto) 0.02 (0.00-0.20) K/uL Sodium 135 L (136-145) mmol/L Potassium 4.4 (3.5-5.1) mmol/L Chloride 100 (98-107) mmol/L Carbon Dioxide 20.9 L (21.0-32.0) mmol/L Anion Gap 18.5 H (7-15) meq/L BUN 40 H (7-18) mg/dL Creatinine 5.46 H* (0.51-1.17) mg/dL Est Cr Clr Drug Dosing 15.64 mL/min Estimated GFR (MDRD) 12 mL/min Glucose 270 H (70-99) mg/dL Lactic Acid (0.4-2.0) mmol/L Uric Acid (2.6-7.2) mg/dL Calcium 9.6 (8.5-10.1) mg/dL Total Bilirubin (0.2-1.0) mg/dL AST (15-37) U/L ALT (12-78) U/L Alkaline Phosphatase (46-116) IU/L C-Reactive Protein 14.6 H (<=0.9) mg/dL Total Protein (6.4-8.2) g/dL Albumin (3.4-5.0) g/dL SARS-CoV-2 Ag (Rapid) Negative (NEGATIVE) Med Orders - Current: Current Medications Discontinued Medications Acetaminophen (Acetaminophen 325 Mg Tab) 650 mg PO Q4H PRN PRN Reason: Pain (Mild 1-3)/fever Last Admin: 12/22/20 07:22 Dose: 650 mg Documented by: Amlodipine Besylate (Amlodipine 5 Mg Tab) 10 mg PO DAILY [facility] Last Admin: 12/22/20 07:20 Dose: 10 mg Documented by: Fentanyl (Fentanyl 100 Mcg/2 Ml Sdv) 100 mcg IVPUSH ONETIME ONE Stop: 12/21/20 19:19 Last Admin: 12/21/20 19:21 Dose: 100 mcg Documented by: Hydralazine HCl (Hydralazine 20 Mg/Ml Sdv) 10 mg IVPUSH ONETIME ONE Stop: 12/21/20 22:40 Last Admin: 12/22/20 02:43 Dose: Not Given Documented by: Hydralazine HCl (Hydralazine 20 Mg/Ml Sdv) 20 mg IVPUSH ONETIME ONE Stop: 12/21/20 22:42 Last Admin: 12/21/20 23:12 Dose: 20 mg Documented by: Hydralazine HCl (Hydralazine 50 Mg Tab) 50 mg PO TID [facility] Last Admin: 12/22/20 11:17 Dose: 50 mg Documented by: Hydromorphone HCl (Hydromorphone 1 Mg/Ml Syringe) 1 mg IVPUSH ONETIME ONE Stop: 12/21/20 20:10 Last Admin: 12/21/20 21:33 Dose: 1 mg Documented by: Hydromorphone HCl (Hydromorphone 1 Mg/Ml Syringe) 1 mg IVPUSH ONETIME ONE Stop: 12/21/20 22:40 Last Admin: 12/21/20 23:12 Dose: 1 mg Documented by: Hydromorphone HCl (Hydromorphone 1 Mg/Ml Syringe) 1 mg IVPUSH Q2H PRN PRN Reason: Pain (severe 7-10) Labetalol HCl (Labetalol 20 Mg/4 Ml Syringe) 20 mg IVPUSH ONETIME ONE; Protocol Stop: 12/21/20 21:40 Last Admin: 12/21/20 21:41 Dose: 20 mg Documented by: Labetalol HCl (Labetalol 100 Mg Tab) 200 mg PO TID [facility] Last Admin: 12/22/20 11:19 Dose: 200 mg Documented by: Methylprednisolone Sodium Succinate (Methylprednisolone Sodium Succinate 125 Mg/2 Ml Sdv) 125 mg IVPUSH ONETIME ONE Stop: 12/21/20 19:56 Last Admin: 12/21/20 21:32 Dose: 125 mg Documented by: Methylprednisolone Sodium Succinate (Methylprednisolone Sodium Succinate 125 Mg/2 Ml Sdv) 125 mg IVPUSH ONETIME ONE Stop: 12/21/20 20:10 Last Admin: 12/21/20 21:36 Dose: Not Given Documented by: Methylprednisolone Sodium Succinate (Methylprednisolone Sodium Succinate 125 Mg/2 Ml Sdv) 125 mg IVPUSH Q6H [facility] Last Admin: 12/22/20 13:27 Dose: 125 mg Documented by: Morphine Sulfate (Morphine 2 Mg/Ml Syringe) 2 mg IVPUSH ONETIME ONE Stop: 12/21/20 18:26 Last Admin: 12/21/20 18:29 Dose: 2 mg Documented by: Oxycodone HCl (Oxycodone 5 Mg Tab) 5 mg PO Q4H PRN PRN Reason: Pain (moderate 4-6) Last Admin: 12/22/20 09:58 Dose: 5 mg Documented by: Sodium Chloride (Sodium Chloride 0.9% 10 Ml Syringe) 10 ml FLUSH ASDIRECTED PRN PRN Reason: Keep Vein Open Last Admin: 12/21/20 23:14 Dose: 10 ml Documented by: Sodium Chloride (Sodium Chloride 0.9% 10 Ml Syringe) 10 ml FLUSH ASDIRECTED PRN PRN Reason: Keep Vein Open
== END 2020-12-22 15:30 | disposition home or self-care (01) ==
LOC: LL.ED 18:01 → LL.MS 23:10
PROVIDERS: ADMIT Nurse Practitioner Family; ATTEND Nurse Practitioner Family
DX: M10.9 Gout, unspecified (principal); M79.672 Pain in left foot; I12.9 Hypertensive chronic kidney disease with stage 1 through stage 4 chronic kidney disease, or unspecified chronic kidney disease; N18.4 Chronic kidney disease, stage 4 (severe); Z20.822 Contact with and (suspected) exposure to COVID-19; Z79.899 Other long term (current) drug therapy
CPT/HCPCS: 36415; 80048; 80053; 83605; 84550; 85025; 86140; 87040; 87426; 96374; 96375; 99285; A9270; J0360; J1170; J2270; J2930; J3010; J3490; 96376; G0378